=== PATIENT | female | born 1995 | race Two or more races ===

== ENCOUNTER 2023-03-21 15:12 | Outpatient (CLI) | payer BC, SELFPAY ==
[2023-03-22 14:15] LABS: Strep B DNA Probe NEGATIVE (Negative)
[2023-03-23 08:01] LABS: Strep B Pen/Amox Allergy No
== END 2023-03-21 15:13 | disposition home or self-care (01) ==
LOC: NFLDREF 15:12
PROVIDERS: Visit Provider Advanced Practice Midwife
DX: Z34.93 Encounter for supervision of normal pregnancy, unspecified, third trimester (principal)
CPT/HCPCS: 87081; 87653